=== PATIENT | male | born 2000 | race African-American/Black ===

== ENCOUNTER 2025-08-07 20:50 | Emergency (ER) | payer OTHER ==
[~2025-08-07] VITALS: Ht 188 cm; Wt 104.5 kg
[2025-08-07 22:00] VITALS: BP 118/59
[2025-08-07 22:05] VITALS: TEMP 98.8; O2SAT 96
== END 2025-08-07 22:15 | disposition home or self-care (01) ==
LOC: EDBD 20:50 → M ED 20:50
DX: S60.222A Contusion of left hand, initial encounter (principal); V49.49XA Driver injured in collision with other motor vehicles in traffic accident, initial encounter; F10.10 Alcohol abuse, uncomplicated; F17.200 Nicotine dependence, unspecified, uncomplicated; Y92.410 Unspecified street and highway as the place of occurrence of the external cause; Y93.89 Activity, other specified; Y99.9 Unspecified external cause status